=== PATIENT | male | born 1960 | race Caucasian/White ===

== ENCOUNTER 2018-07-20 11:01 | Outpatient (CLI) | payer MEDICARE ==
[~2018-07-20] VITALS: Ht 170.2 cm; Wt 86.4 kg
--- NOTE | ~2018-07-20 | OP ---
PATIENT NAME: RADHIKA CISNEROS MEDICAL RECORD: [id number] :58 LOCATION:D.CAT ADMISSION DATE: SURGEON: DAISY LOYOLA MD DATE OF OPERATION: 07/20/2018 PROCEDURE: Left heart catheterization, selective coronary angiography, right radial approach. CATHETERS: A 5-Nigerian sheath, 5/4 left and right Nic, 5/4 pig. The procedure was well tolerated. The patient returned to the mike, sheath removed. TR band was placed. FINDINGS: Left ventriculography in 30-degree LUCERO view: Normal wall motion and normal systolic function. CORONARY ANATOMY: LEFT MAIN: Left main is free of disease. LAD: Free of disease in the diagonal system. CIRCUMFLEX: Free of disease in the marginal system. RIGHT CORONARY ARTERY: Dominant artery, gives rise to PDA, free of disease. IMPRESSION: Normal LV systolic function. Normal coronary anatomy. TRANSINT:[id number] Voice Confirmation ID: [id number] DOCUMENT ID: [id number] DAISY LOYOLA MD at 1305 CC: [id number] DICTATION DATE: 07/20/18 1310 MATERIAL HANDLER FLOORPERSON: 07/20/18 1340 DEP CLI 07/20/18 [facility] [address] [place] [address]
--- NOTE | ~2018-07-20 | HEMODYNAMI ---
PATIENT:RADHIKA CISNEROS MEDICAL RECORD: [id number] : 58 LOCATION:[facility] ADMISSION DATE: 07/20/18 Generatedon:07/20/201813:08 Patient name: RADHIKA CISNEROS Patient #: [id number] SSN: D OB: 1960 Date of study: 07/20/2018 Page: Of Hemodynamic Procedure Report Patient Data Patient Demographics Procedure consent was obtained First Name: RADHIKA Gender: Male Last Name: AMELIA : 1960 Patient #: [id number] Age: 58 year(s) Race: Unknown Additional ID: [id number] Contact details Address: [address] [place] [address] State: [place] City: [place] Zip code: [address] Past Medical History Allergies Allergen Reaction Date Comments Reported Other allergy 07/20/2018 [place] Admission Admission Data Admission Date: 07/20/2018 Admission Time: 11:01 Height (in.): 5.7 BSA: 0.34 (m2) Height (cm.): 14.48 BMI: 4219.72 (kg/m2) Weight (lbs.): 195 Weight (kg.): 88.45 Procedure Procedure Types Cath Procedure Diagnostic Procedure [facility] w/Coronaries Procedure Description Procedure Date Procedure Date: 07/20/2018 Procedure Start Time: 12:56 Procedure End Time: 13:07 Procedure Staff Name Function Tucker Santiago RT Tanbark Peeler Rocío Schaefer RT Monitor Rochelle Schmidt RT Scrub Mark Patterson RN Nurse Darren Berger MD Performing Physician Procedure Data Cath Procedure Fluoroscopy Diagnostic fluoroscopy Total fluoroscopy Time: 3.1 time: 3.1 min min Diagnostic fluoroscopy Total fluoroscopy dose: 761 dose: 761 mGy mGy Contrast Material Contrast Material Type Amount (ml) Isovue 300 68 Entry Location Entry Primary Successful Side Size Upsize Upsize Entry Closure Hawley ccessful Closure Location (Fr) 1 (Fr) 2 (Fr) Remarks Device Remarks Radial Right 6 Fr Mechanical artery Short Compression Estimated blood loss: 10 ml Diagnostic catheters Device Type Used For End Catheter Placement DIAGNOSTIC [place] 110cm 5 Procedure Fr catheter ([id number]) DIAGNOSTIC JL 3.5 5Fr Procedure catheter ([id number]) Procedure Complications No complications Procedure Medications Medication Administration Route Dosage 0.9% NaCl I.V. 100 ml/hr Oxygen etCO2 Nasal cannula 2 l/min Heparin Flush Bag added to field 2 bags (1000units/500ml NS) Lidocaine 2% added to field 20 Radial Cocktail added to field 1 syringe (Verapomil 2mg/Nitro 400mcg/Heparin 1500units) Benadryl I.V. 50 mg Versed I.V. 2 mg Fentanyl I.V. 100 mcg Radial Cocktail I.A. 1 syringe (Verapomil 2mg/Nitro 400mcg/Heparin 1500units) Versed I.V. 1 mg Hemodynamics Rest BSA: 0.34 (m2) O2 Consumption: Estimated: 39.21 (ml/min) O2 Consumption indexed: Estimated:115.32 (ml/min/m) Heart Rate: 64 (bpm) Pressure Samples Time Site Value (mmHg) Purpose Heart Use Rate(bpm) 12:58 LV 90/2,9 Snapshot 69 12:59 AO 66/48(54) Pullback 68 12:59 LV 73/9,13 Pullback 68 Gradients Valve Time Site 1 Site 2 Mean SEP/DFP Peak To Heart Use (mmHg) (sec/min) Peak Rate (mmHg) (bpm) Aortic 12:59 LV AO 7 9 7 68 73/9,13 66/48(54) Calculations Valve P-P Mean Valve Index Valve Source Name Gradient Area Flow (cm2) Aortic 7 7 7 7 Snapshots Pre Cath Intra NCS Post Cath Vital Signs Time Heart Resp SPO2 etCO2 NIBP Rhythm Pain Sedation Rate (ipm) (%) (mmHg) (mmHg) Status Level (bpm) 12:43:51 64 16 100 29.4 99/64(77) NSR 0 (11) 10(A) , No pain 12:47:57 65 12 97 30.1 101/52(70) NSR 0 (11) 10(A) , No pain 12:52:05 68 17 88 11.3 103/58(74) NSR 0 (11) 10(A) , No pain 12:56:13 71 18 93 31.6 97/58(83) NSR 0 (11) 10(A) , No pain 13:00:19 69 19 93 28.6 81/49(68) NSR 0 (11) 10(A) , No pain 13:04:20 71 15 94 29.3 78/50(71) NSR 0 (11) 10(A) , No pain Medications Time Medication Route Dose Verified Delivered Reason Notes Effectiveness by by 12:42:01 0.9% NaCl I.V. 100 Mark Mark Per ml/hr Yesenia Patterson physician RN RN 12:42:17 Oxygen etCO2 2 l/min Mark Mark Per Nasal Yesenia Patterson physician cannula RN RN 12:42:29 Heparin Flush added 2 bags Mark Mark used for Bag to Yesenia Patterson procedure (1000units/500ml field RN RN NS) 12:42:38 Lidocaine 2% added 20ml Mark Mark for local to vial Amandaigan Yesenia anesthetic field VALDIVIA RN 12:42:49 Radial Cocktail added 1 Mark Mark used for (Verapomil to syringe Amandaigan Yesenia procedure 2mg/Nitro field VALDIVIA RN 400mcg/Heparin 1500units) 12:45:34 Benadryl I.V. 50 mg Mark Mark Per Yesenia Patterson physician RN RN 12:45:44 Versed I.V. 2 mg Mark Mark for sedation Yesenia Patterson RN RN 12:45:52 Fentanyl I.V. 100 mcg Mark Mark for sedation Yesenia Patterson RN RN 12:58:08 Radial Cocktail I.A. 1 Mark Darren for (Verapomil syringe Lorigan Celine vasodilation 2mg/Nitro SHEA ANTOINE 400mcg/Heparin 1500units) 12:58:18 Versed I.V. 1 mg Mark Mark for sedation Yesenia Patterson RN office technologist Log Time Note 12:24:12 Signed procedure consent form obtained from patient. 12:24:13 Diagnostic Cath status Elective 12:24:15 Tucker HOSKINS(R) sent for patient. Start room use. 12:24:16 Time tracking: Regular hours (M-F 7:00 - 5:00) 12:24:20 Plan of Care:Hemodynamics will remain stable., Cardiac rhythm will remain stable., Comfort level will be maintained., Respiratory function will remain adequate., Patient/ family verbilizes understanding of procedure., Procedure tolerated without complication., Recovers from procedure without complications.. 12:24:28 H&P Date Dictated: 07/16/2018 Within 30 days and on chart., H&P Addendum completed by physician on day of procedure. (MUST COMPLETE FOR ALL OUTPATIENTS). 12:25:09 Patient allergic to Other allergyNORCO 12:25:16 Patient Height : 5.7 inches 12:25:19 Patient Weight : 195 lbs 12:28:54 Patient received from Pre/Post Procedure Room to CCL 2 Alert and oriented. Tansferred to table in Supine position. 12:28:55 Warm blankets applied, and negrito hugger turned on for patient comfort. 12::55 Correct patient and procedure confirmed by team. 12:28:56 ECG and BP/O2 sat monitors applied to patient. 12:42:01 0.9% NaCl 100 ml/hr I.V. was administered by Mark Patterson RN; Per physician; 12:42:17 Oxygen 2 l/min etCO2 Nasal cannula was administered by Mark Patterson RN; Per physician; 12:42:29 Heparin Flush Bag (1000units/500ml NS) 2 bags added to field was administered by Mark Patterson RN; used for procedure; 12:42:38 Lidocaine 2% 20ml vial added to field was administered by Mark Patterson RN; for local anesthetic; 12:42:48 Vital chart was started 12:42:49 Radial Cocktail (Verapomil 2mg/Nitro 400mcg/Heparin 1500units) 1 syringe added to field was administered by Mark Patterson RN; used for procedure; 12:42:49 Baseline sample Acquired. 12:42:51 Rhythm: sinus rhythm 12:42:53 Full Disclosure recording started 12:42:56 Family in patients room. 12:42:59 Patient NPO since Midnight. 12:43:02 Is the patient allergic to Iodine/contrast media? No. 12:43:04 Patient diabetic? No. 12:43:08 Snore? No 12:43:10 Sleep apnea? No 12:43:22 IV patent on arrival in left forearm with 0.9% NaCl at [facility]. 12:43:28 Lab results completed and on chart. 12:43:34 Right Radial & Left Groin area was prepped with chlora-prep and draped in sterile fashion 12:43:35 Alarms reviewed by R. N. 12:43:37 Sharps counted by scrub and verified by R.N. 12:43:42 Physician paged 12:43:42 Physician arrived 12:43:43 --------ALL STOP TIME OUT------ 12:43:43 Final Timeout: patient, procedure, and site verified with staff and physician. All members of the team are in agreement. 12:43:58 Right Radial & Left Groin site verified by team. 12:44:05 Physical assessment completed. ASA score P 2 - A patient with mild systemic disease as per Darren Berger MD. 12:44:10 Sedation plan: IV Moderate Sedation Medication:Versed, Fentanyl 12:44:40 Use device set Radial Dx or PCI 12:44:58 ACIST Syringe (82980) opened to sterile field. 12:44:59 Medline Cath Pack ([id number]) opened to sterile field. 12:44:59 Bag Decanter (2002S) opened to sterile field. 12:45:00 DIAGNOSTIC WIRE .035 260cm J wire (773570) opened to sterile field. 12:45:00 ACIST Hand Control (62014) opened to sterile field. 12:45:01 ACIST Manifold (50487) opened to sterile field. 12:45:01 Tegaderm 4 x 4 (1626W) opened to sterile field. 12:45:02 MBrace Wrist Support ([id number]) opened to sterile field. 12:45:02 NEEDLE Cook 21G 4cm Radial (N44413) opened to sterile field. 12:45:05 SHEATH 6Fr Prelude Radial ([id number]) opened to sterile field. 12:45:34 Benadryl 50 mg I.V. was administered by Mark Patterson RN; Per physician; 12:45:44 Versed 2 mg I.V. was administered by Mark Patterson RN; for sedation; 12:45:52 Fentanyl 100 mcg I.V. was administered by Mark Patterson RN; for sedation; 12:56:12 Procedure started. 12:56:23 Local anesthetic to right radial artery with Lidocaine 2% by Darren Berger MD.INITIAL ACCESS ONLY 12:57:00 A 6 Fr Short sheath was inserted into the Right Radial artery 12:58:08 Radial Cocktail (Verapomil 2mg/Nitro 400mcg/Heparin 1500units) 1 syringe I.A. was administered by Darren Berger MD; for vasodilation; 12:58:10 A DIAGNOSTIC [place] 110cm 5 Fr catheter (889351) was advanced over the wire and used for Procedure. 12:58:18 Versed 1 mg I.V. was administered by Mark Patterson RN; for sedation; 12:58:18 LV angiography performed. 12:58:21 LV gram done using LUCERO 12:59:01 EF : 55 % 13:00:00 RCA angiography performed. 13:01:17 LCA angiography performed. 13:02:19 A DIAGNOSTIC JL 3.5 5Fr catheter ([id number]) was advanced over the wire and used for Procedure. 13:04:52 LCA angiography performed. 13:04:54 Catheter removed. 13:05:55 TR BAND Standard ([id number]) opened to sterile field. 13:06:07 Sheath removed intact; hemostasis achieved with Mechanical Compression to the Right Radial artery. 13:06:18 Procedure ended.(Physican Out) 13:06:30 Fluoroscopy time 03.10 minutes. 13:06:36 Fluoroscopy dose: 761 mGy 13:06:36 Flurop Dose total: 761 13:06:39 Contrast amount:Isovue 300 68ml. 13:06:43 Sharps counted by scrub and verified by R.N. 13:06:48 TR band inflated with 10cc of air. 13:06:50 Insertion/operative site no bleeding no hematoma. 13:06:51 Post Procedure Pulses reassessed and unchanged 13:06:58 Post-procedure physical assessment completed. ASA score P 2 - A patient with mild systemic disease as per Darren Berger MD. 13:07:02 Post procedure rhythm: unchanged. 13:07:06 Estimated blood loss: 10 ml 13:07:08 Post procedure instruction explained to patient.Patient verbalizes understanding. 13:07:15 Procedure and supply charges have been captured, reviewed, submitted and are correct. 13:07:34 Procedure Complication : No complications 13:07:36 Vital chart was stopped 13:07:37 See physician's report for complete and final results. 13:07:39 Report given to Pre/Post Procedure Room. 13:07:42 Patient transfered to Pre/Post Procedure Room with Stretcher. 13:07:45 Procedure ended. 13:07:45 Full Disclosure recording stopped 13:07:48 End room use (Document Last) Device Usage Item Name Manufacture Quantity Catalog Number Hospital Part Current M inimal Lot# / Charge Number Stock Stock Serial# Code ACIST Syringe Acist 1 55399 092881 630140 518024 2 0 (49571) Medical [employer] Medline Cath Cardinal 1 [id number] 951959 93698 574207 5 Pack Health ([id number]) Bag Decanter Microtek 1 2001S 830875 43161 583707 5 (2001S) Medical Inc. DIAGNOSTIC WIRE St Von 1 648008 294172 426780 862833 3 0 .035 260cm J wire (278127) ACIST Hand Acist 1 29345 228075 266996 434867 5 Control (93522) [employer] Inc ACIST Manifold Acist 1 57486 453083 753536 011742 5 (58220) Medical Systems Inc Tegaderm 4 x 4 3M 1 1626W 634950 636736 149723 5 (1626W) MBrace Wrist Advanced 1 140-0250-00 929724 50069 509151 5 Support Vascular (201251028) Dynamics NEEDLE Cook 21G Cook Medical 1 E53352 466672 562927 852557 5 4cm Radial (M75458) SHEATH 6Fr Merit 1 [id number] 555467 004383 770469 5 Prelude Radial Medical ([id number]) DIAGNOSTIC Terumo 1 40-2833 974852 215234 388432 5 [place] 110cm 5 Fr catheter (253067) DIAGNOSTIC JL Cardinal 1 [id number] 992079 210549 741422 5 3.5 5Fr Health catheter (574180D) TR BAND Terumo 1 [id number] 875690 911427 056211 4 0 Standard ([id number]) Signature Audit [place] Stage Time Signature Unsigned Intra-Procedure 07/20/2018 Rocío Schaefer 1:08:16 PM RT(R) Signatures Monitor : Rocío Schaefer Signature : RT Date : Time : [id number] [place] [address]
[2018-07-20 11:31] VITALS: BP 123/63; Ht 170.2 cm; Wt 86.4 kg
[2018-07-20] MEDS ORDERED: BAYER CHEWABLE81 MG PO (11:42)
[2018-07-20] MEDS ORDERED: NEURONTIN 300300 MG (11:43)
[2018-07-20] MEDS ORDERED: CYCLOBENZAPRINE5 MG PO (11:43)
[2018-07-20] MEDS ORDERED: LIPITOR40 MG PO (11:43)
[2018-07-20] MEDS ORDERED: LISINOPRIL10 MG PO (11:44)
[2018-07-20 12:01] LABS: BASOPHILS 0.2 % (0-2); EOSINOPHILS 2.8 % (0-7); HEMATOCRIT 38.2 % (42.0-54.0); HEMOGLOBIN 13.5 g/dL (13.5-17.5); IMMATURE GRANULOCYTES 0.2 % (0-5); LYMPHOCYTES 35.6 % (15-50); MCH 32.7 pg (26.0-34.0); MCHC 35.3 g/dL (31.0-37.0); MCV 92.5 fL (80.0-100.0); MEAN PLATELET VOLUME 9.5 fL (7.4-10.4); MONOCYTES 7.1 % (2-11); NEUTROPHILS 54.1 % (40-80); PLATELET COUNT 298 10x3/uL (130-400); RBC 4.13 10x6/uL (4.20-6.10); RDW 12.4 % (11.5-14.5); WBC 9.6 10x3/uL (4.8-10.8)
[2018-07-20 12:15] LABS: ANION GAP 11.9 mmol/L (8-16); CALCIUM 8.9 mg/dL (8.5-10.1); CREATININE - SERUM 1.7 mg/dL (0.6-1.3); POTASSIUM - SERUM 3.9 mmol/L (3.5-5.1)
== END 2018-07-20 15:05 | disposition home or self-care (01) ==
LOC: D.CATH 11:01
PROVIDERS: Internal Medicine Interventional Cardiology
DX: R07.9 Chest pain, unspecified (principal); Z01.812 Encounter for preprocedural laboratory examination